=== PATIENT | female | born 1960 | race Caucasian/White ===

== ENCOUNTER 2017-03-20 23:20 | Inpatient (IN) ==
[2017-03-21] MEDS ORDERED: cefTRIAXone 1,000 MG in SODIUM CHLORIDE 0.9% 100 ML IV STA (00:13)
[2017-03-21] MEDS ORDERED: SODIUM CHLORIDE 0.9% 500 ML IV STA (00:13)
[2017-03-21] MEDS ORDERED: ALBUTEROL/IPRATROPIUM 3 ML NEB RESP TX STA (00:13)
[2017-03-21] MEDS ORDERED: ONDANSETRON 4 MG/2 ML VIAL IV STA (00:13)
[2017-03-21] MEDS ORDERED: INSULIN REGULAR 100 UNIT/ML IV STA (00:16)
[2017-03-21] MEDS ORDERED: SODIUM CHLORIDE 0.9% 100 ML IV ONE (00:49)
[2017-03-21] MEDS ORDERED: cefTRIAXone 1,000 MG VIAL ONE (00:49)
[2017-03-21] MEDS ORDERED: ONDANSETRON 4 MG/2 ML VIAL ONE (00:49)
[2017-03-21] MEDS ORDERED: INSULIN REGULAR 100 UNIT/ML ONE (00:49)
[2017-03-21 00:59] LABS: Basophils % 0.2 % (0.0-0.8); Hematocrit 34.7 VOL% (35.7-47.0); Hemoglobin 12.8 GM/DL (12.0-16.0); Immature Granulocytes % 1.1 %; Immature Granulocytes Absolute 0.12 #; Lymphocytes # 1.2 10*3/uL (1.4-4.0); Lymphocytes % 10.5 % (21.3-54.2); Mean Corpuscular HGB Conc 36.9 GM/DL (32-36); Mean Corpuscular Hemoglobin 32 PG (27-34); Mean Corpuscular Volume 86.1 FL (87-102); Monocytes # 0.3 10*3/uL (0.11-0.8); Monocytes % 2.5 % (1.7-12.7); Neutrophils # 9.6 10*3/uL (1.4-7.4); Neutrophils % 85.7 % (38.7-73.9); Platelet Count 216 T/CUMM (130-400); Red Blood Count 4.03 MC/CUMM (3.8-5.5); Red Cell Distribution Width 12.1 % (9.3-17.3); White Blood Count 11.2 T/CUMM (4-12)
[2017-03-21 01:04] LABS: Apearance,Urine CLEAR (Clear); Bilirubin,Urine Negative (Negative); Blood, Urine Small mg/dL (Negative); Glucose,Urine (UA) >=500 mg/dL (Negative); Ketones,Urine 20 mg/dL (Negative); Nitrite,Urine Negative (Negative); Protein,Urine 30 MG/DL; Squamous Epithelial Cell,Urine Occasional /HPF (0-10); Urine Color Yellow (Yellow); Urine Specific Gravity 1.026 (1.001-1.035); WBC,Urine 1 /HPF (0-6)
[2017-03-21 01:13] LABS: Lactic Acid 2.3 MMOL/L (0.4-2.0)
[2017-03-21 01:14] LABS: Alanine Aminotransferase 58 U/L (13-56); Albumin 3.5 G/DL (3.4-5.0); Alkaline Phosphatase 103 U/L (45-117); Aspartate Amino Transferase 38 U/L (0-37); Blood Urea Nitrogen 18 MG/DL (7-18); Glucose 355 MG/DL (74-106); Magnesium 2.1 MG/DL (1.8-2.4); Osmolality,Calculated 281.4 MOS/KG (273-304); Potassium 3.8 MMOL/L (3.5-5.1); Sodium 133 MMOL/L (136-145); Total Protein 7.2 G/DL (6.4-8.3); Troponin I Only < 0.015 NG/ML (0.00-0.045)
[2017-03-21] MEDS ORDERED: LEVOFLOXACIN INJ 150 ML IV ONE (01:35)
[2017-03-21 01:39] LABS: PT Patient Result 10.8 SECS; Partial Thromboplastin Time 29.9 SECS (0-40)
[2017-03-21] MEDS: LEVOFLOXACIN INJ 750 MG in PREMIX 1 EACH IV SCH (01:47)
[2017-03-21] MEDS ORDERED: GLUCAGON 1 MG VIAL IM PRN ×2 (03:34→15:20)
[2017-03-21] MEDS ORDERED: SODIUM CHLORIDE 0.9% 500 ML IV ONE (03:34)
[2017-03-21] MEDS ORDERED: DEXTROSE 50% 25 GM/50 ML VIAL IV PRN ×2 (03:34→15:20)
[2017-03-21] MEDS ORDERED: ALBUTEROL/IPRATROPIUM 3 ML NEB RESP TX PRN (03:34)
[2017-03-21] MEDS: SODIUM CHLORIDE 0.9% 1,000 ML IV SCH ×3 (04:39→21:01)
[2017-03-21 05:32] LABS: Band Neutrophils 2 % (0-10); Giant Platelets Few; Hypochromasia 1+; Lymphocytes 12 % (20-55); Microcytosis Slight; Ovalocytes Slight; Platelet Estimate Adequate; Segmented Neutrophils 81 % (50-85); Total Cells Counted 100
[2017-03-21 06:24] LABS: Basophils % 0.1 % (0.0-0.8); Hematocrit 35.2 VOL% (35.7-47.0); Hemoglobin 12.6 GM/DL (12.0-16.0); Immature Granulocytes % 1.4 %; Immature Granulocytes Absolute 0.13 #; Lymphocytes # 1.3 10*3/uL (1.4-4.0); Lymphocytes % 13.7 % (21.3-54.2); Mean Corpuscular HGB Conc 35.8 GM/DL (32-36); Mean Corpuscular Hemoglobin 31 PG (27-34); Mean Corpuscular Volume 87.8 FL (87-102); Mean Platelet Volume 10.8 FL (9.6-12.0); Monocytes # 0.3 10*3/uL (0.11-0.8); Monocytes % 3.4 % (1.7-12.7); Neutrophils # 7.8 10*3/uL (1.4-7.4); Neutrophils % 81.4 % (38.7-73.9); Platelet Count 217 T/CUMM (130-400); Red Blood Count 4.01 MC/CUMM (3.8-5.5); Red Cell Distribution Width 12.1 % (9.3-17.3); White Blood Count 9.6 T/CUMM (4-12)
[2017-03-21 06:47] LABS: Band Neutrophils 1 % (0-10); Hypochromasia Slight; Lymphocytes 8 % (20-55); Microcytosis 1+; Platelet Estimate Adequate; Segmented Neutrophils 84 % (50-85); Total Cells Counted 100
[2017-03-21] MEDS: INSULIN REGULAR 100 UNIT/ML SUBCUT SCH ×3 (06:55→18:21)
[2017-03-21 07:15] LABS: Bilirubin,Total 0.7 MG/DL (0.2-1.0); Calcium 8.5 MG/DL (8.5-10.1); Potassium 4.1 MMOL/L (3.5-5.1); Total Protein 6.7 G/DL (6.4-8.3)
[2017-03-21] MEDS: ALBUTEROL/IPRATROPIUM 3 ML NEB RESP TX SCH ×5 (07:36→23:23)
[2017-03-21] MEDS: PANTOPRAZOLE 40 MG TABLET PO SCH (09:06)
[2017-03-21] MEDS: DOCUSATE SODIUM 100 MG CAPSULE PO SCH ×2 (09:06→21:00)
[2017-03-21] MEDS: ENOXAPARIN 40 MG/0.4 ML SYRINGE SUBCUT SCH (09:07)
[2017-03-21] MEDS ORDERED: MORPHINE 2 MG/1 ML SYRINGE IV PRN (13:13)
[2017-03-21] MEDS: INSULIN GLARGINE 100 UNIT/ML SUBCUT SCH (16:47)
[2017-03-21] MEDS: CITALOPRAM 20 MG TABLET PO SCH (16:47)
[2017-03-21] MEDS: traMADol 50 MG TABLET PO PRN (21:00)
[2017-03-21] MEDS: ZALEPLON 5 MG CAPSULE PO PRN (23:35)
[2017-03-22] MEDS: LEVOFLOXACIN INJ 750 MG in PREMIX 1 EACH IV SCH ×2 (01:23→04:17)
[2017-03-22] MEDS: ALBUTEROL/IPRATROPIUM 3 ML NEB RESP TX SCH ×6 (02:36→23:54)
[2017-03-22] MEDS: INSULIN REGULAR 100 UNIT/ML SUBCUT SCH ×4 (04:17→18:38)
[2017-03-22] MEDS: SODIUM CHLORIDE 0.9% 1,000 ML IV SCH ×4 (04:38→22:33)
[2017-03-22] MEDS: ENOXAPARIN 40 MG/0.4 ML SYRINGE SUBCUT SCH (09:30)
[2017-03-22] MEDS: CITALOPRAM 20 MG TABLET PO SCH (09:30)
[2017-03-22] MEDS: DOCUSATE SODIUM 100 MG CAPSULE PO SCH ×2 (09:30→21:13)
[2017-03-22] MEDS: PANTOPRAZOLE 40 MG TABLET PO SCH (09:30)
[2017-03-22] MEDS: INSULIN GLARGINE 100 UNIT/ML SUBCUT SCH (09:31)
[2017-03-22] MEDS: traMADol 50 MG TABLET PO PRN (12:33)
[2017-03-22] MEDS: HYDROcodone/HOMATROPINE 5 ML UDCUP PO PRN ×2 (13:57→22:34)
[2017-03-22] MEDS: ZALEPLON 5 MG CAPSULE PO PRN (22:32)
[2017-03-23] MEDS: INSULIN REGULAR 100 UNIT/ML SUBCUT SCH ×4 (00:16→18:26)
[2017-03-23] MEDS: LEVOFLOXACIN INJ 750 MG in PREMIX 1 EACH IV SCH ×3 (00:54→01:55)
[2017-03-23] MEDS: traMADol 50 MG TABLET PO PRN ×2 (01:06→09:19)
[2017-03-23] MEDS: ALBUTEROL/IPRATROPIUM 3 ML NEB RESP TX SCH ×6 (03:19→23:51)
[2017-03-23] MEDS: ONDANSETRON 4 MG/2 ML VIAL IV PRN ×2 (04:52→09:24)
[2017-03-23] MEDS: SODIUM CHLORIDE 0.9% 1,000 ML IV SCH ×2 (07:05→15:29)
[2017-03-23] MEDS: CITALOPRAM 20 MG TABLET PO SCH (09:19)
[2017-03-23] MEDS: PANTOPRAZOLE 40 MG TABLET PO SCH (09:20)
[2017-03-23] MEDS: INSULIN GLARGINE 100 UNIT/ML SUBCUT SCH (09:20)
[2017-03-23] MEDS: DOCUSATE SODIUM 100 MG CAPSULE PO SCH ×2 (09:20→21:26)
[2017-03-23] MEDS: ENOXAPARIN 40 MG/0.4 ML SYRINGE SUBCUT SCH (09:20)
[2017-03-23] MEDS: HYDROcodone/HOMATROPINE 5 ML UDCUP PO PRN (10:34)
[2017-03-23] MEDS ORDERED: PROMETHAZINE 25 MG/1 ML VIAL IM PRN (11:14)
[2017-03-23] MEDS: BENZONATATE 100 MG CAPSULE PO SCH ×2 (15:30→21:26)
[2017-03-23] MEDS: ZALEPLON 5 MG CAPSULE PO PRN (21:26)
[2017-03-24] MEDS: INSULIN REGULAR 100 UNIT/ML SUBCUT SCH ×4 (02:03→17:10)
[2017-03-24] MEDS: SODIUM CHLORIDE 0.9% 1,000 ML IV SCH ×4 (02:05→23:38)
[2017-03-24] MEDS: LEVOFLOXACIN INJ 750 MG in PREMIX 1 EACH IV SCH ×2 (02:05→03:41)
[2017-03-24] MEDS: ALBUTEROL/IPRATROPIUM 3 ML NEB RESP TX SCH ×5 (03:07→19:00)
[2017-03-24] MEDS: BENZONATATE 100 MG CAPSULE PO SCH ×3 (09:25→20:27)
[2017-03-24] MEDS: CITALOPRAM 20 MG TABLET PO SCH (09:25)
[2017-03-24] MEDS: DOCUSATE SODIUM 100 MG CAPSULE PO SCH ×2 (09:25→20:27)
[2017-03-24] MEDS: PANTOPRAZOLE 40 MG TABLET PO SCH (09:25)
[2017-03-24] MEDS: ENOXAPARIN 40 MG/0.4 ML SYRINGE SUBCUT SCH (09:25)
[2017-03-24] MEDS: INSULIN GLARGINE 100 UNIT/ML SUBCUT SCH (09:25)
[2017-03-24] MEDS: traMADol 50 MG TABLET PO PRN (09:26)
[2017-03-24] MEDS: MEROPENEM 500 MG in SYRINGE 1 EACH IV SCH (17:21)
[2017-03-24] MEDS: ZALEPLON 5 MG CAPSULE PO PRN (20:28)
[2017-03-24] MEDS ORDERED: INSULIN GLARGINE 100 UNIT/ML SUBCUT SCH (21:00)
[2017-03-25] MEDS: MEROPENEM 500 MG in SYRINGE 1 EACH IV SCH ×3 (00:40→16:49)
[2017-03-25] MEDS: INSULIN REGULAR 100 UNIT/ML SUBCUT SCH ×4 (00:44→18:25)
[2017-03-25] MEDS: LEVOFLOXACIN INJ 750 MG in PREMIX 1 EACH IV SCH ×2 (01:46→01:53)
[2017-03-25] MEDS: ALBUTEROL/IPRATROPIUM 3 ML NEB RESP TX SCH ×7 (03:30→23:53)
[2017-03-25] MEDS: DOCUSATE SODIUM 100 MG CAPSULE PO SCH ×2 (10:11→20:30)
[2017-03-25] MEDS: ENOXAPARIN 40 MG/0.4 ML SYRINGE SUBCUT SCH (10:11)
[2017-03-25] MEDS: PANTOPRAZOLE 40 MG TABLET PO SCH (10:11)
[2017-03-25] MEDS: CITALOPRAM 20 MG TABLET PO SCH (10:12)
[2017-03-25] MEDS: SODIUM CHLORIDE 0.9% 1,000 ML IV SCH ×3 (10:12→16:54)
[2017-03-25] MEDS: BENZONATATE 100 MG CAPSULE PO SCH ×3 (10:12→20:29)
[2017-03-25] MEDS ORDERED: INSULIN GLARGINE 100 UNIT/ML SUBCUT SCH (12:32)
[2017-03-25] MEDS: traMADol 50 MG TABLET PO PRN ×2 (14:54→20:29)
[2017-03-25] MEDS: ZALEPLON 5 MG CAPSULE PO PRN (20:29)
[2017-03-26] MEDS: MEROPENEM 500 MG in SYRINGE 1 EACH IV SCH ×2 (00:23→09:05)
[2017-03-26] MEDS: SODIUM CHLORIDE 0.9% 1,000 ML IV SCH ×2 (01:00→10:27)
[2017-03-26] MEDS: LEVOFLOXACIN INJ 750 MG in PREMIX 1 EACH IV SCH ×2 (01:03→01:05)
[2017-03-26] MEDS: INSULIN REGULAR 100 UNIT/ML SUBCUT SCH ×3 (01:04→12:44)
[2017-03-26] MEDS: ALBUTEROL/IPRATROPIUM 3 ML NEB RESP TX SCH ×3 (03:28→12:11)
[2017-03-26 06:00] LABS: Basophils % 0.4 % (0.0-0.8); Eosinophils # 0.4 10*3/uL (0.0-0.87); Eosinophils % 4.5 % (0.00-10.9); Hematocrit 33.5 VOL% (35.7-47.0); Hemoglobin 11.9 GM/DL (12.0-16.0); Immature Granulocytes % 4.2 %; Immature Granulocytes Absolute 0.33 #; Lymphocytes # 2.5 10*3/uL (1.4-4.0); Lymphocytes % 31.7 % (21.3-54.2); Mean Corpuscular HGB Conc 35.5 GM/DL (32-36); Mean Corpuscular Hemoglobin 32 PG (27-34); Mean Corpuscular Volume 90.1 FL (87-102); Monocytes # 0.6 10*3/uL (0.11-0.8); Monocytes % 8.1 % (1.7-12.7); Neutrophils % 51.1 % (38.7-73.9); Platelet Count 285 T/CUMM (130-400); Red Blood Count 3.72 MC/CUMM (3.8-5.5); Red Cell Distribution Width 12.9 % (9.3-17.3); White Blood Count 7.9 T/CUMM (4-12)
[2017-03-26 06:43] LABS: Calcium 7.9 MG/DL (8.5-10.1); Osmolality,Calculated 279.4 MOS/KG (273-304); Potassium 4.7 MMOL/L (3.5-5.1)
[2017-03-26] MEDS: DOCUSATE SODIUM 100 MG CAPSULE PO SCH (09:04)
[2017-03-26] MEDS: BENZONATATE 100 MG CAPSULE PO SCH (09:04)
[2017-03-26] MEDS: CITALOPRAM 20 MG TABLET PO SCH (09:04)
[2017-03-26] MEDS: ENOXAPARIN 40 MG/0.4 ML SYRINGE SUBCUT SCH (09:04)
[2017-03-26] MEDS: PANTOPRAZOLE 40 MG TABLET PO SCH (09:04)
[2017-03-26] MEDS ORDERED: AMOXICILLIN/CLAV 500 MG TABLET PO SCH (11:00)
[2017-03-26 11:01] VITALS: BP 139/109
[2017-03-26] MEDS ORDERED: INFLUENZA VIRUS VACCINE 0.5 ML SYRINGE IM ONE (12:09)
[2017-03-26] MEDS ORDERED: DOXYCYCLINE HYCLATE 100 MG CAPSULE PO SCH (21:00)
== END 2017-03-26 14:55 | disposition home or self-care (01) | DRG 194 ==
LOC: N.ED 23:20 → N.EDINP 03-21 03:01 → SUATTDRO 03-21 03:01 → N.4E 03-21 03:26
PROVIDERS: ADMIT Hospitalist; ATTEND Internal Medicine

== ENCOUNTER 2021-01-21 16:37 | Inpatient (IN) ==
[2021-01-21] MEDS ORDERED: HYDROmorphone 2 MG/1 ML VIAL IV STA (17:04)
[2021-01-21] MEDS ORDERED: VANCOMYCIN INJ 1,000 MG in SODIUM CHLORIDE 0.9% 250 ML IV STA (17:04)
[2021-01-21] MEDS ORDERED: SODIUM CHLORIDE 0.9% 1,000 ML IV STA (17:04)
[2021-01-21] MEDS ORDERED: PIPERACILLIN/TAZOBACTAM 3,375 MG in SODIUM CHLORIDE 0.9% 100 ML IV STA (17:05)
[2021-01-21 17:23] LABS: Basophils % 0.3 % (0.0-0.8); Eosinophils # 0.1 10*3/uL (0.0-0.87); Eosinophils % 0.9 % (0.00-10.9); Hematocrit 35.3 VOL% (35.7-47.0); Hemoglobin 12.1 GM/DL (12.0-16.0); Immature Granulocytes % 0.5 %; Immature Granulocytes Absolute 0.05 #; Lymphocytes # 2.1 10*3/uL (1.4-4.0); Lymphocytes % 19.6 % (21.3-54.2); Mean Corpuscular HGB Conc 34.3 GM/DL (32-36); Mean Corpuscular Volume 90.5 FL (87-102); Mean Platelet Volume 10.6 FL (9.6-12.0); Monocytes % 7.8 % (1.7-12.7); Neutrophils % 70.9 % (38.7-73.9); Platelet Count 190 T/CUMM (130-400); Red Cell Distribution Width 12.3 % (9.3-17.3); White Blood Count 10.8 T/CUMM (4-12)
[2021-01-21 17:44] LABS: Osmolality,Calculated 272.1 MOS/KG (273-304); Potassium 3.4 MMOL/L (3.5-5.1)
[2021-01-21] MEDS ORDERED: ONDANSETRON 4 MG/2 ML VIAL IV PRN (18:17)
[2021-01-21] MEDS ORDERED: DEXTROSE 50% 25 GM/50 ML VIAL IV PRN (18:17)
[2021-01-21] MEDS ORDERED: GLUCAGON 1 MG VIAL IM PRN (18:17)
[2021-01-21] MEDS ORDERED: POTASSIUM CHLORIDE 20 MEQ TABLET PO ONE (18:25)
[2021-01-21] MEDS ORDERED: VANCOMYCIN 1,000 MG VIAL ONE (18:26)
[2021-01-21] MEDS ORDERED: PIPERACILLIN/TAZOBACTAM 3,375 MG VIAL IV ONE (18:29)
[2021-01-21] MEDS: ENOXAPARIN 40 MG/0.4 ML SYRINGE SUBCUT SCH (18:45)
[2021-01-21] MEDS ORDERED: POTASSIUM CHLORIDE 20 MEQ TABLET PO PRN (19:38)
[2021-01-21] MEDS ORDERED: PNEUMOCOCCAL VACCINE (23 VALENT) 0.5 ML VIAL IM ONE (20:36)
[2021-01-21] MEDS: INSULIN LISPRO 100 UNIT/ML SUBCUT SCH (21:14)
[2021-01-21] MEDS: SODIUM CHLORIDE 0.9% 1,000 ML IV SCH (21:26)
[2021-01-22] MEDS: PIPERACILLIN/TAZOBACTAM 3,375 MG in SODIUM CHLORIDE 0.9% 100 ML IV SCH ×3 (02:19→20:47)
[2021-01-22] MEDS: VANCOMYCIN INJ 1,000 MG in SODIUM CHLORIDE 0.9% 250 ML IV SCH ×2 (06:11→18:24)
[2021-01-22 06:26] LABS: Basophils % 0.4 % (0.0-0.8); Eosinophils # 0.4 10*3/uL (0.0-0.87); Eosinophils % 3.7 % (0.00-10.9); Hematocrit 32.4 VOL% (35.7-47.0); Hemoglobin 10.9 GM/DL (12.0-16.0); Immature Granulocytes % 0.6 %; Immature Granulocytes Absolute 0.06 #; Lymphocytes # 2.5 10*3/uL (1.4-4.0); Lymphocytes % 26.3 % (21.3-54.2); Mean Corpuscular HGB Conc 33.6 GM/DL (32-36); Mean Corpuscular Volume 92.6 FL (87-102); Mean Platelet Volume 10.6 FL (9.6-12.0); Monocytes % 8.7 % (1.7-12.7); Neutrophils % 60.3 % (38.7-73.9); Platelet Count 177 T/CUMM (130-400); Red Cell Distribution Width 12.4 % (9.3-17.3); White Blood Count 9.6 T/CUMM (4-12)
[2021-01-22 06:54] LABS: Albumin 2.7 G/DL (3.4-5.0); Calcium 8.3 MG/DL (8.5-10.1); Osmolality,Calculated 275.5 MOS/KG (273-304); Potassium 3.9 MMOL/L (3.5-5.1); Total Protein 6.1 G/DL (6.4-8.2)
[2021-01-22 07:00] LABS: Band Neutrophils 7 % (0-10); Eosinophils 5 % (0-10); Lymphocytes 31 % (20-55); Segmented Neutrophils 48 % (50-85); Total Cells Counted 100
[2021-01-22 07:01] LABS: Anisocytosis 1+; Platelet Estimate Normal
[2021-01-22] MEDS: MULTIVITAMIN (CENTRUM) TABLET PO SCH (08:44)
[2021-01-22] MEDS: ASCORBIC ACID 500 MG TABLET PO SCH (08:45)
[2021-01-22] MEDS: CHOLECALCIFEROL 1,000 UNIT TABLET PO SCH (08:45)
[2021-01-22] MEDS: CITALOPRAM 40 MG TABLET PO SCH (08:45)
[2021-01-22] MEDS: INSULIN LISPRO 100 UNIT/ML SUBCUT SCH ×4 (10:31→20:48)
[2021-01-22] MEDS: ENOXAPARIN 40 MG/0.4 ML SYRINGE SUBCUT SCH (18:25)
[2021-01-22] MEDS: SODIUM CHLORIDE 0.9% 1,000 ML IV SCH (23:21)
[2021-01-23] MEDS: SODIUM CHLORIDE 0.9% 1,000 ML IV SCH ×2 (03:14→13:00)
[2021-01-23] MEDS: PIPERACILLIN/TAZOBACTAM 3,375 MG in SODIUM CHLORIDE 0.9% 100 ML IV SCH ×3 (03:20→19:06)
[2021-01-23] MEDS ORDERED: [UNRECOGNIZED DRUG - OTHER] IM ONE (07:22)
[2021-01-23] MEDS: VANCOMYCIN INJ 1,000 MG in SODIUM CHLORIDE 0.9% 250 ML IV SCH ×2 (07:25→17:35)
[2021-01-23] MEDS ORDERED: OCTREOTIDE 500 MCG/ML VIAL SUBCUT ONE (08:30)
[2021-01-23] MEDS: INSULIN LISPRO 100 UNIT/ML SUBCUT SCH ×4 (09:59→21:20)
[2021-01-23] MEDS ORDERED: MIDAZOLAM 2 MG/2 ML VIAL ONE (10:13)
[2021-01-23] MEDS ORDERED: propofoL 200 MG/20 ML VIAL IV ONE (10:13)
[2021-01-23] MEDS ORDERED: SEVOFLURANE 1 UNIT/15 MINUTE INH ONE (10:13)
[2021-01-23] MEDS ORDERED: fentaNYL 100 MCG/2 ML VIAL ONE (10:13)
[2021-01-23] MEDS ORDERED: LIDOCAINE 2% 5 ML VIAL ONE (10:13)
[2021-01-23] MEDS ORDERED: BUPIVACAINE MPF 0.25% 30 ML VIAL ONE (10:21)
[2021-01-23] MEDS ORDERED: LIDOCAINE 1%/EPI INJ 20 ML VIAL ONE (10:21)
[2021-01-23] MEDS: ASCORBIC ACID 500 MG TABLET PO SCH (10:36)
[2021-01-23] MEDS: CHOLECALCIFEROL 1,000 UNIT TABLET PO SCH (10:36)
[2021-01-23] MEDS: CITALOPRAM 40 MG TABLET PO SCH (10:36)
[2021-01-23] MEDS: MULTIVITAMIN (CENTRUM) TABLET PO SCH (10:36)
[2021-01-23] MEDS ORDERED: ONDANSETRON 4 MG/2 ML VIAL ONE (11:01)
[2021-01-23] MEDS ORDERED: ONDANSETRON 4 MG/2 ML VIAL IV PRN (11:26)
[2021-01-23] MEDS: HYDROmorphone 2 MG/1 ML VIAL IV PRN ×2 (11:41→11:46)
[2021-01-23] MEDS: ENOXAPARIN 40 MG/0.4 ML SYRINGE SUBCUT SCH (17:34)
[2021-01-24] MEDS: SODIUM CHLORIDE 0.9% 1,000 ML IV SCH (02:01)
[2021-01-24] MEDS: PIPERACILLIN/TAZOBACTAM 3,375 MG in SODIUM CHLORIDE 0.9% 100 ML IV SCH (02:03)
[2021-01-24 06:18] LABS: Basophils % 0.6 % (0.0-0.8); Eosinophils # 0.5 10*3/uL (0.0-0.87); Eosinophils % 7.6 % (0.00-10.9); Hematocrit 32.3 VOL% (35.7-47.0); Hemoglobin 11.1 GM/DL (12.0-16.0); Immature Granulocytes % 0.8 %; Immature Granulocytes Absolute 0.05 #; Lymphocytes # 2.6 10*3/uL (1.4-4.0); Mean Corpuscular HGB Conc 34.4 GM/DL (32-36); Mean Corpuscular Volume 91.8 FL (87-102); Mean Platelet Volume 10.3 FL (9.6-12.0); Monocytes % 8.3 % (1.7-12.7); Neutrophils % 41.7 % (38.7-73.9); Platelet Count 216 T/CUMM (130-400); Red Blood Count 3.52 MC/CUMM (3.8-5.5); Red Cell Distribution Width 12.6 % (9.3-17.3); White Blood Count 6.3 T/CUMM (4-12)
[2021-01-24] MEDS: VANCOMYCIN INJ 1,000 MG in SODIUM CHLORIDE 0.9% 250 ML IV SCH (06:46)
[2021-01-24 06:48] LABS: Calcium 8.4 MG/DL (8.5-10.1); Osmolality,Calculated 278.4 MOS/KG (273-304); Potassium 3.7 MMOL/L (3.5-5.1)
[2021-01-24] MEDS: INSULIN LISPRO 100 UNIT/ML SUBCUT SCH ×2 (08:53→11:51)
[2021-01-24] MEDS: ASCORBIC ACID 500 MG TABLET PO SCH (09:04)
[2021-01-24] MEDS: CITALOPRAM 40 MG TABLET PO SCH (09:04)
[2021-01-24] MEDS: MULTIVITAMIN (CENTRUM) TABLET PO SCH (09:04)
[2021-01-24] MEDS: CHOLECALCIFEROL 1,000 UNIT TABLET PO SCH (09:04)
[2021-01-24 12:04] VITALS: BP 122/61
== END 2021-01-24 15:23 | disposition home or self-care (01) | DRG 988 ==
LOC: N.EDINP 16:37 → N.ED 16:37 → N.EDINP 20:00 → N.3E 20:54
PROVIDERS: ADMIT Hospitalist; ATTEND Hospitalist